=== PATIENT | male | born 2000 | race Two or more races ===

== ENCOUNTER 2022-09-14 13:09 | Emergency (ER) | payer BC, OTHER ==
[~2022-09-14] VITALS: Ht 182.9 cm; Wt 86.2 kg
[2022-09-14 15:09] VITALS: BP 118/56
[2022-09-14] MEDS ORDERED: IBUPROFEN 800 MG TAB PO ONE (15:30)
[2022-09-14] MEDS ORDERED: TETANUS-DIPTH-ACEL PERTUSSIS 0.5ML SYR Tdap IM ONE (15:30)
[2022-09-14] MEDS ORDERED: DexAMETHasone SOD PHOS 10MG/1ML VIAL INJ IM ONE (15:30)
[2022-09-14] MEDS ORDERED: ACET300T58 PO (15:52)
[2022-09-14] MEDS ORDERED: IBUP-1455 PO (15:52)
[2022-09-14] MEDS ORDERED: CEPH250C PO (15:52)
== END 2022-09-14 15:53 | disposition home or self-care (01) ==
LOC: ER 13:09
DX: L05.01 Pilonidal cyst with abscess (principal); Z98.890 Other specified postprocedural states
CPT/HCPCS: 90471; 90715; 96372; 99284; J1100